=== PATIENT | female | born 1950 | race Caucasian/White ===

== ENCOUNTER 2018-03-17 02:29 | Emergency (ER) | payer MEDICARE ==
--- NOTE | 2018-03-17 02:47 | ED ---
Back Pain - HPI Summary HPI Summary: Pt is a 67 y/o female who presents to the ED c/o back pain. Last night at 22:30 she was sitting in her chair when she suddenly had sharp left-sided mid-lower back pain. The pain is currently rated an 8/10 in severity. Pt denies any injury. She states that movement makes the pain worse, and lying still and pressure on her back makes the pain better. Heat, cold, and Ibuprofen have not helped with the pain. Pt denies any abdominal pain, numbness, or weakness. 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 - Onset/Duration: Sudden Onset, Lasting Hours - 22:30, Still Present Timing: Constant Back Pain Location: Is Discrete @ - left mid-low back Severity Currently: Severe Pain Intensity: 8 Pain Scale Used: 0-10 Numeric Aggravating Symptom(s): Movement Alleviating Symptom(s): Rest, Other - Pressure on back Associated Signs And Symptoms: Negative: Weakness, Numbness, Abdominal Pain - Allergies/Home Medications Allergies/Adverse Reactions: Allergies Allergy/AdvReac Type Severity Reaction Status Date / Time erythromycin base Allergy Nausea And Verified 03/17/18 02:38 [From Erythrocin] Vomiting levofloxacin Allergy Unknown Verified 03/17/18 02:38 Reaction Details moxifloxacin Allergy Unknown Verified 03/17/18 02:38 Reaction Details PMH/Surg Hx/FS Hx/Imm Hx Endocrine/Hematology History: Denies: Hx Diabetes Cardiovascular History: Denies: Hx Congestive Heart Failure, Hx Hypertension History: Reports: Other Problems/Disorders - kidney stones in past Musculoskeletal History: Reports: Other Musculoskeletal History - osteopenia Denies: Hx Osteoporosis - Cancer History Hx Chemotherapy: No Hx Radiation Therapy: No - Surgical History Surgery Procedure, Year, and Place: bunion operation, gallbladder removed, fibroid removal, hysterectomy, wisdom teeth removed Infectious Disease History: No Infectious Disease History: Denies: Traveled Outside the [place] in Last 30 Days - Family History Known Family History: Negative: Renal Disease - kidney stones - Social History Hx Substance Use: No Substance Use Type: Reports: None Hx Tobacco Use: No Smoking Status (MU): Never Smoked Tobacco Review of Systems Negative: Abdominal Pain Positive: Myalgia - back pain Negative: Weakness, Numbness All Other Systems Reviewed And Are Negative: Yes Physical Exam - Summary Physical Exam Summary: Appearance: Well appearing, no pain distress Skin: warm, dry, reflects adequate perfusion Head/face: normal Eyes: EOMI, ANIL ENT: mucous membranes moist Neck: supple, non-tender Respiratory: CTA, breath sounds present Cardiovascular: RRR, pulses symmetrical Abdomen: non-tender, soft Bowel Sounds: present Musculoskeletal: strength/ROM intact, spasm and tenderness of left lower lumbar musculature, no midline tenderness, no CVA tenderness Neuro: normal, sensory motor intact, A&Ox3 Triage Information Reviewed: Yes Vital Signs On Initial Exam: Initial Vitals Temp Pulse Resp BP Pulse Ox 97.5 F 77 16 144/86 100 03/17/18 02:31 03/17/18 02:31 03/17/18 02:31 03/17/18 02:31 03/17/18 02:31 Vital Signs Reviewed: Yes Procedures - Procedure Summary Procedure Summary: Trigger point injection: Reason: Lumbar spasm Description: The patient was verbally consented for trigger point injection. She was laid supine and the left lumbar musculature was cleaned with alcohol. She was injected and divided aliquots with a total of 15 cc of 0.5% bupivacaine with epinephrine. The medication was massaged through the tissues. She tolerated this well and regained range of motion quickly. Her pain was greatly improved. There were no complications. Diagnostics - Vital Signs Vital Signs Temp Pulse Resp BP Pulse Ox 03/17/18 02:31 97.5 F 77 16 144/86 100 - Laboratory Lab Statement: Any lab studies that have been ordered have been reviewed, and results considered in the medical decision making process. - Ultrasound No standard instances Ultrasound Interpretation Completed By: ED Physician Summary of Ultrasound Findings: Performed at bedside by ED physician: no AAA, no right-sided hydronephrosis. Cholecystectomy. Re-Evaluation - Re-Evaluation First Eval Re-Evaluation Time: 03:00 Change: Unchanged Comment: Performed trigger point injection. Second Eval Re-Evaluation Time: 03:26 Change: Improved Comment: Pt feels much better after injection, and is walking around. Back Pain Course/Dx - Course Course Of Treatment: Nurse's notes reviewed. Trigger point injection greatly. Resolved discomfort from spasm in the left low lumbar musculature. Bedside ultrasound showed no presence of hydronephrosis or abdominal area of aneurysm. The patient has previously had a cholecystectomy. There is no abdominal tenderness or urinary symptoms. She had been given a dose of cyclobenzaprine prior to discharge and will follow up closely with her chiropractor. - Diagnoses Differential Diagnosis/HQI/PQRI: Positive: Aneurysm, Renal Colic, Strain, Sprain , Other - uti Provider Diagnoses: Lumbar strain Discharge - Sign-Out/Discharge Documenting (check all that apply): Patient Departure - Discharge - Discharge Plan Condition: Improved Disposition: HOME Prescriptions: Cyclobenzaprine (NF) [Cyclobenzaprine 5 MG (NF)] 5 mg PO TID PRN #15 tab PRN Reason: muscle pain Patient Education Materials: Low Back Strain (ED) Referrals: Mary Avila MD [Primary Care Provider] - Additional Instructions: Ice, massage, range of motion exercises. Ibuprofen as discussed. Call your chiropractor in the morning to schedule prompt follow-up. Return with uncontrolled pain, worse, numbness/weakness, new symptoms or other concerns as discussed. - Billing Disposition and Condition Condition: IMPROVED Disposition: Home - Attestation Statements Document Initiated by Scribe: Yes Documenting Scribe: Stephanie Carrillo Provider For Whom Scribe is Documenting (Include Credential): Kevin Ashley MD Scribe Attestation: Stephanie Crane scribed for Kevin Ashley MD on 03/17/18 at 0356. Scribe Documentation Reviewed: Yes Provider Attestation: The documentation as recorded by the Stephanie alejo accurately reflects the service I personally performed and the decisions made by , Kevin Ashley MD Status of Scribe Document: Viewed
[2018-03-17] MEDS ORDERED: Bupivacaine 0.5% W/EPI SDV* 30 ML VIAL INJ ONE (02:51)
[2018-03-17] MEDS ORDERED: Bupivacaine 0.5% W/EPI SDV* 30 ML VIAL ONE (02:52)
[2018-03-17] MEDS ORDERED: Cyclobenzaprine TAB* 10 MG PO ONE (03:36)
[2018-03-17 03:56] VITALS: BP 102/82
== END 2018-03-17 03:57 | disposition home or self-care (01) ==
LOC: ED 02:29
DX: S39.012A Strain of muscle, fascia and tendon of lower back, initial encounter (principal); M85.80 Other specified disorders of bone density and structure, unspecified site; X58.XXXA Exposure to other specified factors, initial encounter; Y92.9 Unspecified place or not applicable
CPT/HCPCS: 99282; A9270-GY

== ENCOUNTER 2018-03-17 07:17 | Emergency (ER) | payer MEDICARE ==
[2018-03-17] MEDS ORDERED: Ketorolac INJ* 15 MG/ML 1 ML VIAL IV PUSH ONE (07:43)
[2018-03-17] MEDS ORDERED: Cyclobenzaprine TAB* 10 MG PO ONE (07:44)
[2018-03-17] MEDS ORDERED: Ketorolac INJ* 30 MG/ML 1 ML VIAL IM ONE (07:44)
--- NOTE | 2018-03-17 07:50 | ED ---
Back Pain - HPI Summary HPI Summary: A 67 y/o female accompanied by her presents to the ED c/o left lower back pain. Currently, the patient is still experiencing left lower back (non- radiating) pain reaching 7-8/10, but when it is sharp it is a 10/10. According to the patient, she was seen overnight for the same back pain. She received some injections which brought her pain down from a 10/10 to a 6/10, however, her pain never completely went away. She also took a muscle relaxer that initially alleviated her pain, as she could walk, but was still in pain. She denies any burning with urination, change in frequency (frequent is her baseline ), and any GI issues, however, she does have a increased urine output volume. Movement aggravates the pain, while applying pressure on the area alleviates it. No trauma to the area. PMHx of kidney stones (4-years ago), no bulging disc , DM, or HTN. She noted that the pain does not feel like a kidney stone. Allergies are erythromycin, levofloxacin, and moxifloxacin. Home Medications Medication Instructions Recorded Confirmed Type Cyclobenzaprine (NF) 5 mg PO TID PRN #15 tab 03/17/18 03/17/18 Rx [Cyclobenzaprine 5 MG (NF)] Melatonin 5 mg PO BEDTIME PRN 03/17/18 03/17/18 History - History of Current Complaint Chief Complaint: EDFlankPain Stated Complaint: LOWER BACK PAIN Time Seen by Provider: 03/17/18 07:28 Hx Obtained From: Patient Onset/Duration: Sudden Onset, Lasting Days, Still Present Onset/Duration: Started Days Ago, Still Present Timing: Constant Back Pain Location: Is Discrete @ - LEFT LOWER BACK, Radiates To - NO Severity Initially: Severe Severity Currently: Severe Pain Intensity: 10 Pain Scale Used: 0-10 Numeric Character: Sharp Aggravating Symptom(s): Movement Alleviating Symptom(s): Other - PRESSURE; MUSCLE RELAXERS TEMPORARILY ALLEVIATED PAIN. Associated Signs And Symptoms: Positive: Other - INCREASED URINE OUTPUT - Allergies/Home Medications Allergies/Adverse Reactions: Allergies Allergy/AdvReac Type Severity Reaction Status Date / Time erythromycin base Allergy Nausea And Verified 03/17/18 07:18 [From Erythrocin] Vomiting levofloxacin Allergy Unknown Verified 03/17/18 07:18 Reaction Details moxifloxacin Allergy Unknown Verified 03/17/18 07:18 Reaction Details Home Medications: Home Medications Melatonin 5 mg PO BEDTIME PRN 03/17/18 [History Confirmed 03/17/18] PMH/Surg Hx/FS Hx/Imm Hx Endocrine/Hematology History: Denies: Hx Diabetes Cardiovascular History: Denies: Hx Congestive Heart Failure, Hx Hypertension History: Reports: Other Problems/Disorders - kidney stones in past Musculoskeletal History: Reports: Other Musculoskeletal History - osteopenia Denies: Hx Osteoporosis - Cancer History Hx Chemotherapy: No Hx Radiation Therapy: No - Surgical History Surgery Procedure, Year, and Place: bunion operation, gallbladder removed, fibroid removal, hysterectomy, wisdom teeth removed Infectious Disease History: No Infectious Disease History: Denies: Traveled Outside the [place] in Last 30 Days - Family History Known Family History: Negative: Renal Disease - kidney stones - Social History Alcohol Use: Daily Alcohol Amount: 1 glass of wine with dinner Hx Substance Use: No Substance Use Type: Reports: None Hx Tobacco Use: No Smoking Status (MU): Never Smoked Tobacco Review of Systems Negative: Fever Positive: Other - NO GI ISSUES AT THIS TIME Positive: other - INCREASED URINE OUTPUT. Negative: burning, frequency - FREQUENT IS AT HER BASELINE Positive: Other - POSITIVE: LEFT LOWER BACK PAIN All Other Systems Reviewed And Are Negative: Yes Physical Exam - Summary Physical Exam Summary: GENERAL: Patient is a well-developed and nourished female who is lying comfortable in the stretcher. Patient is not in any acute respiratory distress. HEAD AND FACE: Normocephalic EYES: PERRLA, EOMI x 2. EARS: Hearing grossly intact. MOUTH: Oropharynx within normal limits. NECK: Supple, trachea is midline, no adenopathy, no JVD, no carotid bruit. CHEST: Symmetric, no tenderness at palpation LUNGS: Clear to auscultation bilaterally. No wheezing or crackles. CVS: Regular rate and rhythm, S1 and S2 present, no murmurs or gallops appreciated. ABDOMEN: Soft. Bowel sounds are normal. No abdominal abnormal pulsations. No abdominal tenderness. BACK: Tenderness to palpation in left paraspinal area. EXTREMITIES: Full ROM in all major joints, no edema, no cyanosis or clubbing. NEURO: Alert and oriented x 3. No acute neurological deficits. Speech is normal and follows commands. SKIN: Dry and warm Triage Information Reviewed: Yes Vital Signs On Initial Exam: Initial Vitals Temp Pulse Resp BP Pulse Ox 98.0 F 79 20 124/93 100 03/17/18 07:19 03/17/18 07:19 03/17/18 07:19 03/17/18 07:19 03/17/18 07:19 Vital Signs Reviewed: Yes Diagnostics - Vital Signs Vital Signs Temp Pulse Resp BP Pulse Ox 03/17/18 07:19 98.0 F 79 20 124/93 100 - Laboratory Result Diagrams: 03/17/18 07:48 03/17/18 07:48 Lab Statement: Any lab studies that have been ordered have been reviewed, and results considered in the medical decision making process. - CT LUMBAR SPINE CT CT Interpretation Completed By: Radiologist Summary of CT Findings: 1. No acute abdominal pelvic visceral process evident. 2. Negative for urolithiasis or hydronephrosis. 3. Lumbar sacral spine degenerative spondylosis and facet joint osteoarthritis. Resulting mild bilateral foraminal stenosis at L5-S1. ED PHYSICIAN REVIEWED THIS RADIOLOGY REPORT. CT A/P CT Interpretation Completed By: Radiologist Summary of CT Findings: 1. No acute abdominal pelvic visceral process evident. 2. Negative for urolithiasis or hydronephrosis. 3. Lumbar sacral spine degenerative spondylosis and facet joint osteoarthritis. Resulting mild bilateral foraminal stenosis at L5-S1. ED PHYSICIAN REVIEWED THIS RADIOLOGY REPORT. Re-Evaluation - Re-Evaluation First Eval Re-Evaluation Time: 08:54 Change: Improved Comment: DISCUSSED RESULTS AND PATIENT REPORTS FEELING BETTER. Back Pain Course/Dx - Course Course Of Treatment: A 67 y/o female accompanied by her presents to the ED c/o left lower back pain. Currently, the patient is still experiencing left lower back (non-radiating) pain reaching 7-8/10, but when it is sharp it is a 10 /10. According to the patient, she was seen overnight for the same back pain. She received some injections which brought her pain down from a 10/10 to a 6/10 , however, her pain never completely went away. She also took a muscle relaxer that initially alleviated her pain, as she could walk, but was still in pain. She denies any burning with urination, change in frequency (frequent is her baseline), and any GI issues, however, she does have a increased urine output volume. Movement aggravates the pain, while applying pressure on the area alleviates it. No trauma to the area. Physical examination findings significant for tenderness to palpation in left paraspinal area. No abdominal tenderness. Hematology, Chemistry, and urinalysis screens were done. No significant laboratory abnormalities were found except elevated glucose at a value of 113 mg /dL. In the ED course, the patient received Flexeril, Toradol, and Percocet. During re-evaluation, I discussed results with patient and she reports feeling better. She is hemodynamically stable and safe for discharge. Strict return precautions given and she will otherwise follow up with her PCP and Orthopedics. Patient will be discharged with a diagnosis of degenerative disc disease and spinal stenosis. Patient is to follow up with orthopedics in 1-3 days. Additionally is to follow up with primary care provider in 1-3 days. Patient is to return to ED for any new or worsening symptoms. Patient is agreeable with this plan. - Diagnoses Provider Diagnoses: Spinal stenosis, Degenerative disc disease Discharge - Sign-Out/Discharge Documenting (check all that apply): Patient Departure - DISCHARGE - Discharge Plan Condition: Stable Disposition: HOME Patient Education Materials: Lumbar Spinal Stenosis (ED), Degenerative Disc Disease (ED) Referrals: Mary Avila MD [Primary Care Provider] - 3 Days Mera Henry MD [Medical Doctor] - 3 Days Additional Instructions: FOLLOW UP WITH ORTHOPEDICS IN 1-3 DAYS. FOLLOW UP WITH PRIMARY CARE PROVIDER IN 1-3 DAYS. RETURN TO ED FOR ANY NEW OR WORSENING SYMPTOMS. - Billing Disposition and Condition Condition: STABLE Disposition: Home - Attestation Statements Document Initiated by Shaista: Yes Documenting Scribe: Jr Gordon Provider For Whom Shaista is Documenting (Include Credential): Bernardo Licea MD Scribe Attestation: Jr Crane, scribed for Bernardo Licea MD on 03/17/18 at 1524. Scribe Documentation Reviewed: Yes Provider Attestation: The documentation as recorded by the Jr alejo accurately reflects the service I personally performed and the decisions made by me, Bernardo Licea MD Status of Scribe Document: Viewed
[2018-03-17 08:16] LABS: ABS Basophils 0.1 10^3/ul (0-0.2); ABS Eosinophils 0.1 10^3/ul (0-0.6); ABS Lymphocytes 1.8 10^3/ul (1.0-4.8); ABS Monocytes 0.5 10^3/ul (0-0.8); ABS Neutrophils 3.1 10^3/ul (1.5-7.7); ABS Nucleated RBC 0 10^3/ul; Eosinophil % 0.9 %; Hematocrit 37 % (35-47); Lymphocyte % 32.6 %; Mean Corpuscular HGB Conc 33 g/dl (31-36); Mean Corpuscular Hemoglobin 29 pg (27-31); Mean Corpuscular Volume 90 fL (80-97); Mean Platelet Volume 8.6 fL (7.4-10.4); Nucleated Red Blood Cells % 0; Platelet Count 218 10^3/ul (150-450); Red Blood Count 4.07 10^6/ul (4.00-5.40); Red Cell Distribution Width 14 % (10.5-15); White Blood Count 5.4 10^3/ul (3.5-10.8)
[2018-03-17 08:35] LABS: ALT 11 U/L (7-52); AST 16 U/L (13-39); Albumin/Globulin Ratio 1.7 (1-3); Alkaline Phosphatase 61 U/L (34-104); Anion Gap 4 mmol/L (2-11); BUN/Creatinine Ratio 17.1 (8-20); Blood Urea Nitrogen 12 mg/dL (6-24); C Reactive Protein < 1.00 mg/L (<8.01); CO2 Carbon Dioxide 30 mmol/L (22-32); Calcium 9.6 mg/dL (8.6-10.3); Chloride 106 mmol/L (101-111); Globulin 2.3 g/dL (2-4); Glucose 113 mg/dL (70-100); Potassium 3.9 mmol/L (3.5-5.0); Sodium 140 mmol/L (135-145); Total Protein 6.3 g/dL (6.4-8.9)
[2018-03-17 08:48] LABS: Urine Appearance Clear; Urine Bilirubin Negative (Negative); Urine Blood Negative (Negative); Urine Color Straw; Urine Glucose Negative (Negative); Urine Ketones Negative (Negative); Urine Nitrite Negative (Negative); Urine Protein Negative (Negative); Urine Specific Gravity 1.006 (1.010-1.030); Urine Urobilinogen Negative (Negative)
[2018-03-17] MEDS ORDERED: oxyCODONE/Acetamin 5/325 MG* TAB PO ONE (09:33)
[2018-03-17 10:10] VITALS: BP 123/82
== END 2018-03-17 10:09 | disposition home or self-care (01) ==
LOC: ED 07:17
DX: M48.061 Spinal stenosis, lumbar region without neurogenic claudication (principal); M51.36 Other intervertebral disc degeneration, lumbar region; Z87.442 Personal history of urinary calculi; M85.80 Other specified disorders of bone density and structure, unspecified site
CPT/HCPCS: 36415; 72131; 74176; 80053; 81003; 83605; 83690; 85025; 86140; 96372; 96374; 99283; A9270-GY; J1885